=== PATIENT | female | born 1970 | race Caucasian/White ===

== ENCOUNTER → 2016-12-01 | Outpatient (CLI) | payer OTHER | LOC: MC.RAD 11:26 | DX: Z12.31 Encounter for screening mammogram for malignant neoplasm of breast (principal) ==

== ENCOUNTER → 2017-03-15 | Outpatient (CLI) | payer OTHER | LOC: MC.RAD 13:00 | DX: N60.01 Solitary cyst of right breast (principal); N63 Unspecified lump in breast ==

== ENCOUNTER → 2018-04-12 | Outpatient (CLI) | payer OTHER | LOC: MC.RAD 10:40 | DX: Z12.31 Encounter for screening mammogram for malignant neoplasm of breast (principal) ==

== ENCOUNTER → 2019-04-12 | Outpatient (CLI) | payer BC | LOC: COL.RAD 07:40 | DX: M17.11 Unilateral primary osteoarthritis, right knee (principal); S83.231A Complex tear of medial meniscus, current injury, right knee, initial encounter ==

== ENCOUNTER → 2019-08-09 | Outpatient (CLI) | payer BC | LOC: MC.RAD 08:30 | DX: Z12.31 Encounter for screening mammogram for malignant neoplasm of breast (principal) ==

== ENCOUNTER → 2020-08-28 | Outpatient (CLI) | payer BC | LOC: MC.RAD | DX: Z12.31 Encounter for screening mammogram for malignant neoplasm of breast (principal) ==

== ENCOUNTER → 2021-07-23 | Outpatient (CLI) | payer BC | LOC: MC.RAD 06:57 | DX: N63.10 Unspecified lump in the right breast, unspecified quadrant (principal) ==

== ENCOUNTER 2022-01-23 20:21 | Emergency (ER) | payer BC ==
[~2022-01-23] VITALS: Ht 167.6 cm; Wt 79.5 kg
[2022-01-23 20:38] VITALS: TEMP 98.5
[2022-01-23 21:40] LABS: BASO % 0.2 % (0.0-2.0); GRAN # 7.2 K/mm3 (1.4-6.5); GRAN % 74.8 % (42.2-75.2); HEMOGLOBIN 10.5 g/dl (12.5-16.0); LYMPH # 1.3 K/mm3 (1.2-3.4); LYMPH % 13.3 % (20.0-51.0); MEAN CELL VOLUME 89 fl (80.0-100.0); MEAN CORPUSCULAR HEMOGLOBIN 31 pg (27-31); MEAN CORPUSCULAR HGB CONC 35 g/dl (33.0-37.0); MEAN PLATELET VOLUME 9.3 fl (7.4-10.4); MONO # 1.1 K/mm3 (0.1-0.6); MONO % 11.4 % (1.7-9.3); PLATELET COUNT 334 K/mm3 (130-400); RED BLOOD COUNT 3.39 M/mm3 (4.10-5.30); REDCELL DISTRIBUTION WIDTH-CV 12.4 % (11.5-14.5)
[2022-01-23 21:55] LABS: ALBUMIN 3.1 gm/dL (3.5-5.0); BILIRUBIN,TOTAL 0.8 mg/dL (0.2-1.2); CREATININE, serum 0.67 mg/dL (0.57-1.11); POTASSIUM 3.8 mmol/L (3.5-4.5); TOTAL PROTEIN 6.8 gm/dL (6.2-8.1)
[2022-01-23] MEDS ORDERED: ZOFRAN ODT4 MG PO (23:44)
[2022-01-24 00:15] VITALS: BP 128/78; PULSE 80
== END 2022-01-24 00:15 | disposition home or self-care (01) ==
LOC: COL.ER 20:21
PROVIDERS: Nurse Practitioner
DX: D64.9 Anemia, unspecified (principal); R11.2 Nausea with vomiting, unspecified; Z98.890 Other specified postprocedural states
CPT/HCPCS: J2270; J2405; J7030

== ENCOUNTER 2023-06-30 09:00 | Outpatient (RCR) | payer BC ==
[~2023-06-30 09:00] MED LIST: ZOFRAN ODT4 MG PO
== END 2023-06-30 09:44 ==
LOC: WSST
DX: R13.10 Dysphagia, unspecified (principal)